=== PATIENT | male | born 1955 | race Caucasian/White ===

== ENCOUNTER 2020-12-01 09:15 | Outpatient (CLI) | payer MEDICARE, SELFPAY ==
[2020-12-01 19:27] LABS: Hemoglobin 14.8 g/dL (14.0-18.0); Mean Corpuscular HGB Conc 33.6 g/dl (32-36); Mean Corpuscular Hemoglobin 32.5 pg (26-34); Mean Corpuscular Volume 96.5 fl (80-100); Mean Platelet Volume 10.1 fl (7.4-10.4); Platelet Count Result 212 k/mm3 (150-375); Red Blood Count 4.56 M/mm3 (4.6-6.20); Red Cell Distribution Width 12.7 % (11.5-14.5); White Blood Count 8.2 K/mm3 (4.5-10.0)
[2020-12-01 20:02] LABS: Alanine Aminotransferase 34 U/L (4-50); Alkaline Phosphatase 106 U/L (38-126); Anion Gap 2 mmol/L (8-16); Aspartate Amino Transferase 40 U/L (17-59); Bilirubin,Total 0.7 mg/dL (0.2-1.3); Blood Urea Nitrogen 20 mg/dL (9-20); Calcium 9.2 mg/dL (8.4-10.2); Carbon Dioxide 28 mmol/L (22-30); Chloride 105 mmol/L (98-107); Cholesterol 125 mg/dL (0-200); Estimated Glomerular Filt Rate > 60; Glucose 108 mg/dL (65-110); HDL Direct 54 mg/dL; Potassium 4.5 mmol/L (3.4-5.0); Sodium 135 mmol/L (137-145); Triglycerides 120 mg/dL (<150)
[2020-12-01 20:12] LABS: LDL Cholesterol Direct 51 mg/dL
[2020-12-01 20:31] LABS: Prostate Specific Antigen 0.5 ng/mL (< OR = 4.0)
[2020-12-01 21:14] LABS: Hemoglobin A1C 5.4 % (<5.7)
== END 2020-12-01 09:16 | disposition home or self-care (01) ==
LOC: ANHBWCLAB 09:21
PROVIDERS: PCP Family Medicine; Visit Provider Family Medicine
DX: H61.20 Impacted cerumen, unspecified ear (principal); Z79.899 Other long term (current) drug therapy; Z12.5 Encounter for screening for malignant neoplasm of prostate
CPT/HCPCS: 36415; 80053; 80061; 83036; 84153; 85027; G0103

== ENCOUNTER 2021-05-26 11:28 | Outpatient (CLI) | payer MEDICARE, SELFPAY ==
[2021-05-26 19:11] LABS: Hematocrit 43.6 % (42.0-52.0); Mean Corpuscular HGB Conc 34.4 g/dl (32-36); Mean Corpuscular Hemoglobin 32.3 pg (26-34); Mean Platelet Volume 10.4 fl (7.4-10.4); Platelet Count Result 213 k/mm3 (150-375); Red Blood Count 4.64 M/mm3 (4.6-6.20); Red Cell Distribution Width 12.2 % (11.5-14.5); White Blood Count 7.2 K/mm3 (4.5-10.0)
[2021-05-26 21:23] LABS: Alanine Aminotransferase 32 U/L (4-50); Albumin Level 4.2 g/dL (3.5-5.1); Alkaline Phosphatase 139 U/L (38-126); Anion Gap 2 mmol/L (8-16); Aspartate Amino Transferase 32 U/L (17-59); Bilirubin,Total 0.6 mg/dL (0.2-1.3); Blood Urea Nitrogen 16 mg/dL (9-20); Calcium 9.1 mg/dL (8.4-10.2); Carbon Dioxide 27 mmol/L (22-30); Chloride 106 mmol/L (98-107); Cholesterol 115 mg/dL (0-200); Estimated Glomerular Filt Rate > 60; Glucose 107 mg/dL (65-110); HDL Direct 54 mg/dL; Potassium 4.3 mmol/L (3.4-5.0); Sodium 135 mmol/L (137-145); Triglycerides 88 mg/dL (<150)
[2021-05-26 21:35] LABS: LDL Cholesterol Direct 48 mg/dL
== END 2021-05-26 11:29 | disposition home or self-care (01) ==
PROVIDERS: PCP Family Medicine; Visit Provider Family Medicine
DX: E78.5 Hyperlipidemia, unspecified (principal); N40.0 Benign prostatic hyperplasia without lower urinary tract symptoms; Z00.00 Encounter for general adult medical examination without abnormal findings
CPT/HCPCS: 36415; 80053; 80061; 85027

== ENCOUNTER 2021-07-07 10:52 | Outpatient (CLI) | payer MEDICARE, SELFPAY ==
[2021-07-07 18:50] LABS: Alkaline Phosphatase 148 U/L (38-126)
[2021-07-11 06:56] LABS: GGT 43 U/L (3-70)
== END 2021-07-07 10:53 | disposition home or self-care (01) ==
PROVIDERS: PCP Family Medicine; Visit Provider Family Medicine
DX: R74.8 Abnormal levels of other serum enzymes (principal)
CPT/HCPCS: 36415; 82977; 84075

== ENCOUNTER 2021-08-15 09:38 | Outpatient (CLI) | payer MEDICARE, SELFPAY ==
[2021-08-15 19:33] LABS: Vitamin D 25 Hydroxy 24.7 ng/mL
[2021-08-17 17:20] LABS: GGT 28 U/L (3-70)
[2021-08-24 15:22] LABS: Parathyroid Hormone Related Pr 6 pg/mL (11-20)
== END 2021-08-15 09:39 | disposition home or self-care (01) ==
PROVIDERS: PCP Family Medicine; Visit Provider Family Medicine
DX: R74.8 Abnormal levels of other serum enzymes (principal); Z79.899 Other long term (current) drug therapy
CPT/HCPCS: 36415; 82306; 82977; 83519; 84443

== ENCOUNTER 2021-09-05 10:08 | Outpatient (CLI) | payer MEDICARE, SELFPAY ==
[2021-09-05 19:27] LABS: Alkaline Phosphatase 148 U/L (38-126)
[2021-09-08 12:07] LABS: Alkaline Phosphatase 124 U/L (35-144); Macrohepatic Isoenzymes 0 % (<=0)
== END 2021-09-05 10:09 | disposition home or self-care (01) ==
PROVIDERS: PCP Family Medicine; Visit Provider Family Medicine
DX: R74.8 Abnormal levels of other serum enzymes (principal)
CPT/HCPCS: 36415; 84075; 84080

== ENCOUNTER 2021-12-05 10:18 | Outpatient (CLI) | payer MEDICARE, SELFPAY ==
[2021-12-05 19:32] LABS: Vitamin D 25 Hydroxy 32.7 ng/mL
[2021-12-05 19:36] LABS: Prostate Specific Antigen 0.7 ng/mL (< OR = 4.0)
== END 2021-12-05 10:19 | disposition home or self-care (01) ==
PROVIDERS: PCP Family Medicine; Visit Provider Family Medicine
DX: E55.9 Vitamin D deficiency, unspecified (principal); Z12.5 Encounter for screening for malignant neoplasm of prostate; N40.0 Benign prostatic hyperplasia without lower urinary tract symptoms
CPT/HCPCS: 36415; 82306; 84153; G0103

== ENCOUNTER 2022-05-31 09:51 | Outpatient (CLI) | payer MEDICARE, SELFPAY ==
[2022-05-31 18:15] LABS: Alanine Aminotransferase 36 U/L (6-50); Albumin Level 4.2 g/dL (3.5-5.1); Alkaline Phosphatase 148 U/L (38-126); Anion Gap 5 mmol/L (8-16); Aspartate Amino Transferase 71 U/L (17-59); Bilirubin,Total 0.8 mg/dL (0.2-1.3); Blood Urea Nitrogen 15 mg/dL (9-20); Calcium 8.9 mg/dL (8.4-10.2); Carbon Dioxide 27 mmol/L (22-30); Chloride 106 mmol/L (98-107); Cholesterol 116 mg/dL (0-200); Estimated Glomerular Filt Rate > 60; Glucose 120 mg/dL (65-110); HDL Direct 52 mg/dL; Potassium 4.3 mmol/L (3.4-5.0); Sodium 138 mmol/L (137-145); Triglycerides 104 mg/dL (<150)
[2022-05-31 18:26] LABS: LDL Cholesterol Direct 40 mg/dL
[2022-05-31 18:27] LABS: Hematocrit 47.4 % (42.0-52.0); Hemoglobin 15.7 g/dL (14.0-18.0); Mean Corpuscular HGB Conc 33.1 g/dl (32-36); Mean Corpuscular Hemoglobin 32.5 pg (26-34); Mean Corpuscular Volume 98.1 fl (80-100); Mean Platelet Volume 10.4 fl (7.4-10.4); Platelet Count Result 225 k/mm3 (150-375); Red Blood Count 4.83 M/mm3 (4.6-6.20); Red Cell Distribution Width 12.7 % (11.5-14.5); White Blood Count 7.8 K/mm3 (4.5-10.0)
[2022-05-31 18:44] LABS: Prostate Specific Antigen 0.5 ng/mL (< OR = 4.0)
== END 2022-05-31 09:52 | disposition home or self-care (01) ==
PROVIDERS: PCP Family Medicine; Visit Provider Family Medicine
DX: R74.8 Abnormal levels of other serum enzymes (principal); E78.5 Hyperlipidemia, unspecified; Z95.810 Presence of automatic (implantable) cardiac defibrillator; I10 Essential (primary) hypertension; Z95.5 Presence of coronary angioplasty implant and graft; N40.0 Benign prostatic hyperplasia without lower urinary tract symptoms; Z12.5 Encounter for screening for malignant neoplasm of prostate
CPT/HCPCS: 36415; 80053; 80061; 84153; 85027; G0103

== ENCOUNTER 2022-10-24 14:31 | Outpatient (CLI) | payer MEDICARE, SELFPAY ==
--- NOTE | ~2022-10-24 | XR_ITS ---
EXAM: XR_[id number]_CR DATE: 10/24/2022 15:00 HISTORY: R20.2 - Paresthesia of skin . COMPARISON: None available. FINDINGS: Craniocervical association and atlantoaxial joint are aligned and there is mild atlantoaxi al degenerative change. No prevertebral soft tissue swelling. 3 mm retrolisthesis at C3-4. Multilevel mild disc space narrowing and marginal osteophytosis. Vertebral body heights are maintained. Normal disc spaces. Mild multilevel facet sclerosis and hypertrophy. IMPRESSION: Grade 1 retrolisthesis at C3-4. Multilevel mild degenerative disc disease and facet arthropathy. Reviewed, dictated and finalized at location K.
--- NOTE | ~2022-10-24 | XR_ITS ---
EXAM: XR shoulder LT min 2V DATE: 10/24/2022 15:00 HISTORY: R20.2 - Paresthesia of skin . COMPARISON: None available. FINDINGS: Left chest pacer with partially visualized leads. Normal mineralization. No fracture or dis location. No lytic or blastic lesion. Moderate AC joint hypertrophy. Moderate glenohumeral joint dege nerative change. No erosion or periosteal change. Soft tissues within normal limits. IMPRESSION: Moderate polyarticular left shoulder osteoarthritis. Reviewed, dictated and finalized at location K.
[2022-10-24 18:47] LABS: Alanine Aminotransferase 34 U/L (6-50); Albumin Level 4.3 g/dL (3.5-5.1); Alkaline Phosphatase 121 U/L (38-126); Aspartate Amino Transferase 78 U/L (17-59); Bilirubin,Total 0.7 mg/dL (0.2-1.3)
[2022-10-24 20:30] LABS: Hemoglobin A1C 5.6 % (<5.7)
== END 2022-10-24 14:32 | disposition home or self-care (01) ==
LOC: ANHBWCIMG 14:34 → ANHBWCLAB 14:36
PROVIDERS: PCP Family Medicine; Visit Provider Nurse Practitioner Adult Health
DX: R79.89 Other specified abnormal findings of blood chemistry (principal); R74.8 Abnormal levels of other serum enzymes; R74.01 Elevation of levels of liver transaminase levels; M79.609 Pain in unspecified limb; R20.2 Paresthesia of skin; M50.30 Other cervical disc degeneration, unspecified cervical region; M19.012 Primary osteoarthritis, left shoulder
CPT/HCPCS: 36415; 72040; 73030; 80076; 83036

== ENCOUNTER 2023-06-12 09:52 | Outpatient (CLI) | payer MEDICARE, SELFPAY ==
[2023-06-12 18:18] LABS: Basophils Absolute Auto 0.1 K/mm3 (0.0-0.1); Basophils Percent Auto 1.3 % (0.2-1.2); Eosinophils Absolute Auto 0.2 K/mm3 (0-0.3); Eosinophils Percent Auto 1.9 % (0-4.4); Hematocrit 47.7 % (42.0-52.0); Hemoglobin 15.7 g/dL (14.0-18.0); Immature Granulocyte Absolute 0.02 K/mm3 (0.00-0.031); Immature Granulocyte Percent A 0.2 % (0-0.5); Lymphocytes Absolute Auto 2.22 K/mm3 (0.9-3.2); Lymphocytes Percent Auto 26.8 % (18.3-44.2); Mean Corpuscular HGB Conc 32.9 g/dl (32-36); Mean Corpuscular Hemoglobin 31.8 pg (26-34); Mean Corpuscular Volume 96.6 fl (80-100); Mean Platelet Volume 10.3 fl (7.4-10.4); Monocytes Absolute Auto 0.6 K/mm3 (0.1-0.6); Monocytes Percent Auto 7.5 % (2.6-8.5); Neutrophils Absolute Auto 5.2 K/mm3 (1.3-6.7); Neutrophils Percent Auto 62.3 % (45.5-73.1); Platelet Count Result 210 k/mm3 (150-375); Red Blood Count 4.94 M/mm3 (4.6-6.20); Red Cell Distribution Width 12.5 % (11.5-14.5); White Blood Count 8.3 K/mm3 (4.5-10.0)
[2023-06-12 18:41] LABS: Cholesterol 115 mg/dL (0-200); HDL Direct 50 mg/dL; Triglycerides 120 mg/dL (<150)
[2023-06-12 18:44] LABS: Anion Gap 5 mmol/L (8-16); Blood Urea Nitrogen 16 mg/dL (9-20); Calcium 9.1 mg/dL (8.4-10.2); Carbon Dioxide 27 mmol/L (22-30); Chloride 106 mmol/L (98-107); Estimated Glomerular Filt Rate > 60; Glucose 113 mg/dL (65-110); Magnesium 2.2 mg/dL (1.6-2.3); Potassium 3.9 mmol/L (3.4-5.0); Sodium 138 mmol/L (137-145)
[2023-06-12 18:45] LABS: Vitamin D 25 Hydroxy 46.3 ng/mL
[2023-06-12 18:51] LABS: LDL Cholesterol Direct 48 mg/dL
== END 2023-06-12 09:53 | disposition home or self-care (01) ==
LOC: ANHBWCLAB 09:55
PROVIDERS: PCP Nurse Practitioner Adult Health; Visit Provider Nurse Practitioner Adult Health
DX: R79.89 Other specified abnormal findings of blood chemistry (principal); I10 Essential (primary) hypertension; Z79.899 Other long term (current) drug therapy
CPT/HCPCS: 36415; 80048; 80061; 82306; 83735; 85025